=== PATIENT | female | born 1940 | race Caucasian/White ===

== ENCOUNTER 2022-01-23 06:55 | Emergency (ER) | payer MEDICARE, OTHER ==
[~2022-01-23] VITALS: Ht 160 cm; Wt 108.9 kg
[2022-01-23] MEDS ORDERED: OMEP20ER PO (07:36)
[2022-01-23] MEDS ORDERED: MELO7.5 PO (08:09)
[2022-01-23] MEDS ORDERED: TRAZ100 PO (08:09)
[2022-01-23] MEDS ORDERED: AMLO5 PO (08:10)
[2022-01-23] MEDS ORDERED: CIPR500 PO (08:10)
[2022-01-23 08:40] LABS: BASOPHILS ABSOLUTE AUTO 0.04 K/mm3 (0.00-0.23); BASOPHILS PERCENT AUTO 0 % (0-2); EOSINOPHILS ABSOLUTE AUTO 0.01 K/mm3 (0.00-0.68); EOSINOPHILS PERCENT AUTO 0 % (0-6); Hematocrit 36.6 % (33.0-51.0); Hemoglobin 12.5 g/dL (11.5-16.0); IMMATURE GRAN ABSOLUTE AUTO 0.11 K/mm3 (0.00-0.10); IMMATURE GRAN PERCENT AUTO 1 % (0-1); LYMPHOCYTES ABSOLUTE AUTO 0.69 K/mm3 (0.84-5.20); LYMPHOCYTES PERCENT AUTO 5 % (21-46); MONOCYTES ABSOLUTE AUTO 0.51 K/mm3 (0.16-1.47); MONOCYTES PERCENT AUTO 4 % (4-13); Mean Corpuscular HGB 32.7 pg (26.0-34.0); Mean Corpuscular HGB Conc 34.2 g/dL (31.5-36.5); Mean Corpuscular Volume 96 fL (80-100); Mean Platelet Volume 11.8 fL (9.1-12.4); NEUTROPHILS ABSOLUTE AUTO 11.82 K/mm3 (1.96-9.15); NEUTROPHILS PERCENT AUTO 90 % (41-73); Platelet Count 288 K/mm3 (150-400); RDW Coefficient Variation 14.1 % (11.7-14.2); RDW Standard Deviation 49.3 fL (35.1-46.3); Red Blood Cell Count 3.82 M/mm3 (3.80-5.20); White Blood Cell Count 13.18 K/mm3 (4.00-11.30)
[2022-01-23 08:47] LABS: Source, Urine Straight Cath
[2022-01-23 08:56] LABS: Blood, Urine Neg (Neg); Glucose Qualitative, Urine Neg (Neg); Ketones, Urine Neg (Neg); Leukocyte Esterase, Urine Neg (Neg); Nitrite, Urine Neg (Neg); Protein, Urine 2+ (Neg); Urobilinogen, Urine 1+ (Normal)
[2022-01-23 08:56] LABS: Albumin, Blood 3.4 g/dL (3.4-5.0); Albumin/Globulin Ratio 0.9 (0.8-1.8); Bilirubin, Total 0.5 mg/dL (0.1-1.0); Bun/Creatinine Ratio 20.1 (12.0-20.0); Calcium, Blood 10.5 mg/dL (8.5-10.1); Creatinine, Blood 1.39 mg/dL (0.40-1.00); Globulin, Blood 3.7 g/dL (2.2-4.0); Potassium, Blood 3.3 mmol/L (3.5-5.5); Total Protein, Blood 7.1 g/dL (6.4-8.2)
[2022-01-23 09:06] LABS: Bilirubin, Urine 1+ (Neg)
[2022-01-23 09:51] LABS: Appearance, Urine Clear (Clear); Color, Urine Yellow (P-Yellow); Red Blood Cells, Urine 0-2 /hpf (0-2); White Blood Cells, Urine 0-2 /hpf (0-5)
[2022-01-23 09:52] LABS: Bacteria Rare /hpf; Calcium Oxalate Crystals Few /hpf; Squamous Epithelial Cells Rare /hpf (Few)
[2022-01-23] MEDS ORDERED: METO10 PO (10:00)
== END 2022-01-23 12:43 | disposition home or self-care (01) ==
LOC: ER 06:55
PROVIDERS: Emergency Medicine
DX: R11.2 Nausea with vomiting, unspecified (principal); E86.0 Dehydration; K21.9 Gastro-esophageal reflux disease without esophagitis; Z91.09 Other allergy status, other than to drugs and biological substances
CPT/HCPCS: 36415; 80053; 81001; 83690; 84484; 85025; A9270; J2405; J2765; J3475; J7030; P9612

== ENCOUNTER 2022-01-25 23:01 | Inpatient (IN) | payer MEDICARE, OTHER ==
[~2022-01-25] VITALS: Ht 162.6 cm; Wt 102.5 kg
[~2022-01-25 23:01] MED LIST: AMLO5 PO; CIPR500 PO; MELO7.5 PO; METO10 PO; OMEP20ER PO; TRAZ100 PO
[2022-01-26 00:07] LABS: BASOPHILS ABSOLUTE AUTO 0.03 K/mm3 (0.00-0.23); BASOPHILS PERCENT AUTO 0 % (0-2); EOSINOPHILS ABSOLUTE AUTO 0.01 K/mm3 (0.00-0.68); EOSINOPHILS PERCENT AUTO 0 % (0-6); Hematocrit 30.2 % (33.0-51.0); IMMATURE GRAN PERCENT AUTO 1 % (0-1); LYMPHOCYTES ABSOLUTE AUTO 0.57 K/mm3 (0.84-5.20); LYMPHOCYTES PERCENT AUTO 4 % (21-46); MONOCYTES PERCENT AUTO 4 % (4-13); Mean Corpuscular HGB 32.9 pg (26.0-34.0); Mean Corpuscular HGB Conc 33.1 g/dL (31.5-36.5); Mean Corpuscular Volume 99 fL (80-100); Mean Platelet Volume 12.1 fL (9.1-12.4); NEUTROPHILS ABSOLUTE AUTO 14.34 K/mm3 (1.96-9.15); NEUTROPHILS PERCENT AUTO 91 % (41-73); Platelet Count 202 K/mm3 (150-400); RDW Coefficient Variation 14.5 % (11.7-14.2); RDW Standard Deviation 52.8 fL (35.1-46.3); Red Blood Cell Count 3.04 M/mm3 (3.80-5.20); White Blood Cell Count 15.75 K/mm3 (4.00-11.30)
[2022-01-26 00:26] LABS: Albumin, Blood 2.4 g/dL (3.4-5.0); Albumin/Globulin Ratio 0.8 (0.8-1.8); Bilirubin, Total 0.4 mg/dL (0.1-1.0); Bun/Creatinine Ratio 39.2 (12.0-20.0); Calcium, Blood 7.4 mg/dL (8.5-10.1); Creatinine, Blood 0.87 mg/dL (0.40-1.00); Globulin, Blood 2.9 g/dL (2.2-4.0); Potassium, Blood 3.3 mmol/L (3.5-5.5); Total Protein, Blood 5.3 g/dL (6.4-8.2)
[2022-01-26 02:50] LABS: Influenza A, PCR NEGATIVE (NEGATIVE); Influenza B, PCR NEGATIVE (NEGATIVE); Resp Syncytial Virus, PCR NEGATIVE (NEGATIVE); SARS-Cov-2 (COVID-19) PCR, MMC NEGATIVE (NEGATIVE)
[2022-01-26 11:33] LABS: Bun/Creatinine Ratio 42.9 (12.0-20.0); Creatinine, Blood 0.79 mg/dL (0.40-1.00)
[2022-01-26 11:40] LABS: Potassium, Blood 5.3 mmol/L (3.5-5.5)
--- NOTE | 2022-01-26 16:55 | NUR ---
Spiritual care request. Pt. is awake in bed and welcmoes my visit. While the Pt. denies spiritual care, th Pt. does verbalize that she is unsettled by not knowing more about her condition. The Pt. also concern about payment for care. This senior planning manager relayed concern to the CAMP PROGRAM DIRECTOR who will share concern with the Boom Conveyor Operator.
--- NOTE | 2022-01-26 18:23 | NUR ---
SHIFT SUMMARY; ASSUMED CARE FROM ED FOR ADMIT. SLID FROM ER GURNEY TO BED WITH SLIDER SHEET AND ASSITANCE. NG TUBE IN PLACE FROM ED, CONNECTED TO PADILLA SUCTION. EVALUATED BY DR. LOPEZ IN ED. NPO FOR BOWEL REST. VSS, A/A/OX4, 2L 02, ATTENDS FOR URGENCY IN PLACE. LR INFUSING AT 100ML/HR. WILL CONTINUE TO MONITOR AND TREAT UNTIL CHANGE OF SHIFT.
--- NOTE | 2022-01-27 04:50 | NUR ---
FREIGHT RATE CLERK SUMMARY PT A/OX4. SLOW TO RESPOND. 2L O2 NC. NG TUBE IN PLACE W/LOW INTERMITTENT SUCTION; REMOVED CANISTER W/700MLS DURING SHIFT; CONTENTS BLACK W/SEDIMENT. ASSISTED PT W/BEDPAN TO URINATE. CONT IV FLUID/LR 100MLS/HR. PT LIVES IN ASSISTED LIVING (HOME [facility] HOME); TALKED TO RUTH F/CUSTODIAL TO UPDATE. OBTAINED PERMISSION TO TALK TO RUTH. PT RESTED T/O THE NIGHT CALL LIGHT IN REACH. PT SLEPT W/SHOES ON HER FEET P/PT REQUEST. CALL LIGHT IN REACH.
[2022-01-27 05:09] LABS: BASOPHILS ABSOLUTE AUTO 0.02 K/mm3 (0.00-0.23); BASOPHILS PERCENT AUTO 0 % (0-2); EOSINOPHILS ABSOLUTE AUTO 0.03 K/mm3 (0.00-0.68); EOSINOPHILS PERCENT AUTO 0 % (0-6); Hematocrit 28.7 % (33.0-51.0); Hemoglobin 9.7 g/dL (11.5-16.0); IMMATURE GRAN ABSOLUTE AUTO 0.05 K/mm3 (0.00-0.10); IMMATURE GRAN PERCENT AUTO 1 % (0-1); LYMPHOCYTES ABSOLUTE AUTO 0.96 K/mm3 (0.84-5.20); LYMPHOCYTES PERCENT AUTO 9 % (21-46); MONOCYTES ABSOLUTE AUTO 0.39 K/mm3 (0.16-1.47); MONOCYTES PERCENT AUTO 4 % (4-13); Mean Corpuscular HGB 33.2 pg (26.0-34.0); Mean Corpuscular HGB Conc 33.8 g/dL (31.5-36.5); Mean Corpuscular Volume 98 fL (80-100); Mean Platelet Volume 12.1 fL (9.1-12.4); NEUTROPHILS ABSOLUTE AUTO 9.39 K/mm3 (1.96-9.15); NEUTROPHILS PERCENT AUTO 87 % (41-73); Platelet Count 200 K/mm3 (150-400); RDW Coefficient Variation 14.1 % (11.7-14.2); RDW Standard Deviation 51.8 fL (35.1-46.3); Red Blood Cell Count 2.92 M/mm3 (3.80-5.20); White Blood Cell Count 10.84 K/mm3 (4.00-11.30)
[2022-01-27 05:30] LABS: Magnesium, Blood 1.9 mg/dL (1.6-2.4)
[2022-01-27 05:33] LABS: Albumin, Blood 2.4 g/dL (3.4-5.0); Anion Gap 7 mmol/L (6-16); Blood Urea Nitrogen 25 mg/dL (8-24); Bun/Creatinine Ratio 37.7 (12.0-20.0); CO2, Blood 29 mmol/L (21-32); Calcium, Blood 7.8 mg/dL (8.5-10.1); Chloride, Blood 99 mmol/L (98-108); Creatinine, Blood 0.66 mg/dL (0.40-1.00); Glomerular Filtration Rate 88 (60-); Glucose, Blood 82 mg/dL (70-99); Phosphorus, Blood 1.7 mg/dL (2.5-4.9); Sodium, Blood 135 mmol/L (136-145)
[2022-01-27 05:38] LABS: Potassium, Blood 3.2 mmol/L (3.5-5.5)
--- NOTE | 2022-01-27 13:31 | NUR ---
Pt sitting on edge of bed, PT beside her; encouraging her to get up out of bed with his assistance. Pt currently has dobhoff in place hooked up to suction. She was seen by surgery this am to evaluate if the SBO is something that will resolve on it's own. She is alert, oriented. No changes to care plan needed at this time.
--- NOTE | 2022-01-27 17:49 | NUR ---
SHIFT SUMMARY PATIENT DENIES PAIN, NAUSEA, SHORTNESS OF BREATH. PATIENT IS A 2P WITH A FWW. PATIENT WORKED WITH PT TODAY. NG PATENT AND CONNECTED TO LOW, INTERMITTENT SUCTION. PATIENT IS NPO. DR. RUIZ CAME TO CONSULT, WANTED SUCTION PUT ON CONTINUOUS. OKAY TO CLAMP FOR XRAY WITH CONTRAST. PATIENT TAKEN X2 FOR XRAY. PER V/O AFTER SCAN, DO NOT CONNECT TO SUCTION TONIGHT. PATIENT TOLERATING WELL. PATIENT IS PASSING SMALL AMOUNT OF GAS. PATIENT CAREGIVER VISITED IN AFTERNOON. NEW IV PLACED IN R FOREARM. PATIENT ON 2L VIA N/C, USUALLY DOES NOT WEAR O2. TRIALED ON ROOM AIR, SATURATED AT 81%. 2L PLACED AGAIN, MAINTAINING SATS AT 98%. PATIENT VERY TIRED. PATIENT IS PLESANT AND COOPERATIVE WITH CARE.
--- NOTE | 2022-01-28 04:36 | NUR ---
MANAGER UTILITIES SUMMARY PT RESTING IN BED T/O NIGHT. CONT NS FLUIDS 125MLS P/HR. NG TUBE IN PLACE; CLAMPED; NO SUCTIONING P/DR; PT IS TOLERATING; DENIES NAUSEA/PAIN. ASSISTED PT W/BEDPAN. NPO. PT WEARING SLIP ON TENNIS SHOES; REMOVED FOR BRIEF MASSAGE AND NOTED SKIN INTACT AND ODOR; PT WANTS SHOES ON FEET AT ALL TIMES. A/OX4; SLOW TO RESPOND. CALL LIGHT IN REACH; USES APPROPRIATELY.
[2022-01-28 05:47] LABS: Albumin, Blood 2.5 g/dL (3.4-5.0); Anion Gap 7 mmol/L (6-16); Blood Urea Nitrogen 18 mg/dL (8-24); Bun/Creatinine Ratio 26.6 (12.0-20.0); CO2, Blood 30 mmol/L (21-32); Calcium, Blood 7.8 mg/dL (8.5-10.1); Chloride, Blood 103 mmol/L (98-108); Creatinine, Blood 0.68 mg/dL (0.40-1.00); Glomerular Filtration Rate 87 (60-); Glucose, Blood 79 mg/dL (70-99); Phosphorus, Blood 1.5 mg/dL (2.5-4.9); Potassium, Blood 2.8 mmol/L (3.5-5.5); Sodium, Blood 140 mmol/L (136-145)
--- NOTE | 2022-01-28 17:10 | NUR ---
SHIFT SUMMARY PATIENT DENIES PAIN, AND SHORTNESS OF BREATH. PATIENT REPORTS SLIGHT NAUSEA. CONNECTED TO LIS AFTER FINAL XRAY THIS MORNING. PATIENT REPORTS SOME RELIEF WITH THAT. BOWEL FOLLOW THROUGH COMPLETE, SEE RESULTS. PER DR. RUIZ, DC NG TUBE. IF NO BM BY TONIGHT GIVE SUPPOSITORY. IF NO RESULTS FROM THAT, START MOM BID. PATIENT NPO BUT SIPS AND CHIPS OKAY. PATIENT WORKED WIHT PT. PATIENT UP TO CHAIR THROUGHOUT SHIFT. PATIENT IS A 2P FWW. POWERGLIDE PLACED TO [place]. PATIENT IS PLEASANT AND COOPERATIVE WITH CARE.
--- NOTE | 2022-01-29 04:57 | NUR ---
SHIFT SUMMARY: PT IS ALERT AND ORIENTED. PT IS CALM AND COOPERATIVE WITH CARE. PT CALLS APPROPRIATELY. PT IS A MAX ASSIST, NOT OUT OF BED OVERNIGHT. PT REQUESTED BED PURDY FOR URINATION. FLUIDS RUNNING ORDERED. PT DENIES PAIN, NAUSEA, VOMITING, AND SOB. PT SLEPT MUCH OF THE NIGHT WHEN NOT DISTURBED. STILL NO BOWEL MOVEMENT, BOWEL CARE TO BEGIN THIS AM. BED IN LOW POSITION, CALL LIGHT WITHIN REACH. WILL REPORT TO DAY NURSE.
[2022-01-29 05:43] LABS: BASOPHILS ABSOLUTE AUTO 0.04 K/mm3 (0.00-0.23); BASOPHILS PERCENT AUTO 1 % (0-2); EOSINOPHILS ABSOLUTE AUTO 0.09 K/mm3 (0.00-0.68); EOSINOPHILS PERCENT AUTO 2 % (0-6); Hematocrit 26.2 % (33.0-51.0); Hemoglobin 8.6 g/dL (11.5-16.0); IMMATURE GRAN ABSOLUTE AUTO 0.08 K/mm3 (0.00-0.10); IMMATURE GRAN PERCENT AUTO 1 % (0-1); LYMPHOCYTES ABSOLUTE AUTO 1.15 K/mm3 (0.84-5.20); LYMPHOCYTES PERCENT AUTO 20 % (21-46); MONOCYTES ABSOLUTE AUTO 0.44 K/mm3 (0.16-1.47); MONOCYTES PERCENT AUTO 8 % (4-13); Mean Corpuscular HGB 33.2 pg (26.0-34.0); Mean Corpuscular HGB Conc 32.8 g/dL (31.5-36.5); Mean Corpuscular Volume 101 fL (80-100); Mean Platelet Volume 11.9 fL (9.1-12.4); NEUTROPHILS ABSOLUTE AUTO 3.96 K/mm3 (1.96-9.15); NEUTROPHILS PERCENT AUTO 69 % (41-73); Platelet Count 212 K/mm3 (150-400); RDW Coefficient Variation 14.3 % (11.7-14.2); RDW Standard Deviation 52.3 fL (35.1-46.3); Red Blood Cell Count 2.59 M/mm3 (3.80-5.20); White Blood Cell Count 5.76 K/mm3 (4.00-11.30)
[2022-01-29 06:11] LABS: Albumin, Blood 2.5 g/dL (3.4-5.0); Anion Gap 5 mmol/L (6-16); Blood Urea Nitrogen 12 mg/dL (8-24); Bun/Creatinine Ratio 18.8 (12.0-20.0); CO2, Blood 26 mmol/L (21-32); Calcium, Blood 7.9 mg/dL (8.5-10.1); Chloride, Blood 107 mmol/L (98-108); Creatinine, Blood 0.64 mg/dL (0.40-1.00); Glomerular Filtration Rate 89 (60-); Glucose, Blood 76 mg/dL (70-99); Magnesium, Blood 1.8 mg/dL (1.6-2.4); Phosphorus, Blood 1.9 mg/dL (2.5-4.9); Potassium, Blood 3.2 mmol/L (3.5-5.5); Sodium, Blood 138 mmol/L (136-145)
--- NOTE | 2022-01-29 18:43 | NUR ---
SHIFT SUMMARY: PT A&O, PLEASANT AND COOPERATIVE. PT WAS ABLE TO TRANSFER INTO CHAIR WITH PT. PT TRANSFERED BACK INTO BED WITH MARIAJOSE ECD WITH 1 PERSON TRANSFER. PT WAS ABLE TO HAVE ONE SMALL FIRM/SOFT BOWEL MOVEMENT. PT WAS GIVEN ANOTHER DOSE OF MOM 15ML TO HELP WITH BOWEL OBSTRUCTION. PT CONTIUNES TO GET NS 125ML/HR. PT REVECIVED TWO DOSE OF AMPICILLIN WITH NO ADVERSE REACTIONS OR SYMPTOMS. PT RESTING IN BED WITH CALL LIGHT WITHIN REACH.
--- NOTE | 2022-01-30 05:33 | NUR ---
SHIFT SUMMARY: PT IS ALERT AND ORIENTED. PT IS CALM AND COOPERATIVE WITH CARE. PT CALLS APPROPRIATELY. PT IS A 1-2 ASSIST, NOT OUT OF BED OVERNIGHT. PT HAD LARGE BM SHORTLY AFTER SHIFT CHANGE, NO BOWEL CARE MEDS GIVEN AFTER. FLUIDS RUNNING ORDERED. PT DENIES PAIN, NAUSEA, VOMITING, AND SOB. BED IN LOW POSITION, CALL LIGHT WITHIN REACH. WILL CONTINUE TO MONITOR.
[2022-01-30 06:10] LABS: Hematocrit 25.9 % (33.0-51.0); Hemoglobin 8.6 g/dL (11.5-16.0); Mean Corpuscular HGB 33.5 pg (26.0-34.0); Mean Corpuscular HGB Conc 33.2 g/dL (31.5-36.5); Mean Corpuscular Volume 101 fL (80-100); Mean Platelet Volume 11.4 fL (9.1-12.4); Platelet Count 209 K/mm3 (150-400); RDW Standard Deviation 52.1 fL (35.1-46.3); Red Blood Cell Count 2.57 M/mm3 (3.80-5.20); White Blood Cell Count 5.69 K/mm3 (4.00-11.30)
[2022-01-30 06:57] LABS: Albumin, Blood 2.5 g/dL (3.4-5.0); Anion Gap 8 mmol/L (6-16); Blood Urea Nitrogen 9 mg/dL (8-24); Bun/Creatinine Ratio 14.7 (12.0-20.0); CO2, Blood 25 mmol/L (21-32); Calcium, Blood 7.8 mg/dL (8.5-10.1); Chloride, Blood 107 mmol/L (98-108); Creatinine, Blood 0.61 mg/dL (0.40-1.00); Glomerular Filtration Rate 90 (60-); Glucose, Blood 72 mg/dL (70-99); Phosphorus, Blood 1.3 mg/dL (2.5-4.9); Potassium, Blood 3.2 mmol/L (3.5-5.5); Sodium, Blood 140 mmol/L (136-145)
--- NOTE | 2022-01-30 13:40 | NUR ---
DR. COLLINS: PT DRANK 118ML OF FLUIDS AND ATE 75% OF LUNCH. PT HAD LOOSE BOWEL MOVEMENT 700ML. DR. COLLINS ORDERED TO ADVANCE DIET TO PUREE DIET AND STOP IV FLUIDS.
--- NOTE | 2022-01-30 19:25 | NUR ---
SHIFT SUMMARY: PT A&O PLEASANT. PT TRANSFERED TO THE CHAIR FOR BEAKFAST AND LUNCH. PT AMBULATED TO THE BATHROOM FOR A SHOWER TODAY. DR. COLLINS DC'D IV FLUIDS AND ANTIBIOTICS. DR. COLLINS ORDERED FULL LIQUID AND ADVANCED TOLERATED. PT HAD MULTIPLE LOOSE BOWEL MOVEMENTS AND URINE OUTPUT. PT ADVANCED TO MECHNICAL SOFT DIET FOR DINNER. PT RESTING IN BED WITH CALL LIGHT WITHIN REACH.
--- NOTE | 2022-01-31 01:17 | NUR ---
SHIFT SUMMARY PLEASANT 81-YEAR-OLD FEMALE, A&O X4. DNR STATUS. POWER GLIDE TO LEFT UPPER ARM, PERIPHERAL IV TO R FOREARM, PATENT. 1-PERSON ASSIST WITH FWW. O2 AT 2L CONTINUOUS. MEDS WHOLE. BEDSIDE COMMODE OR BEDPAN, CONTINENT. NO STOOLS FIRST HALF THIS SHIFT, REPORTED TO BE LOOSE LAST SHIFT. DIET: MECHANICAL SOFT, THIN LIQUIDS. PTN HAS BEEN RESTING COMFORTABLY FIRST HALF THIS SHIFT. CONTINUE TO MONITOR.
[2022-01-31 05:15] LABS: Hematocrit 24.6 % (33.0-51.0); Hemoglobin 8.4 g/dL (11.5-16.0); Mean Corpuscular HGB 33.9 pg (26.0-34.0); Mean Corpuscular HGB Conc 34.1 g/dL (31.5-36.5); Mean Corpuscular Volume 99 fL (80-100); Mean Platelet Volume 11.5 fL (9.1-12.4); Platelet Count 214 K/mm3 (150-400); RDW Coefficient Variation 13.9 % (11.7-14.2); RDW Standard Deviation 50.2 fL (35.1-46.3); Red Blood Cell Count 2.48 M/mm3 (3.80-5.20); White Blood Cell Count 5.43 K/mm3 (4.00-11.30)
[2022-01-31 05:39] LABS: Albumin, Blood 2.5 g/dL (3.4-5.0); Anion Gap 6 mmol/L (6-16); Blood Urea Nitrogen 7 mg/dL (8-24); Bun/Creatinine Ratio 11.2 (12.0-20.0); CO2, Blood 25 mmol/L (21-32); Calcium, Blood 7.6 mg/dL (8.5-10.1); Chloride, Blood 105 mmol/L (98-108); Creatinine, Blood 0.62 mg/dL (0.40-1.00); Glomerular Filtration Rate 89 (60-); Glucose, Blood 82 mg/dL (70-99); Phosphorus, Blood 1.6 mg/dL (2.5-4.9); Potassium, Blood 3.3 mmol/L (3.5-5.5); Sodium, Blood 136 mmol/L (136-145)
--- NOTE | 2022-01-31 05:50 | NUR ---
0567 This manual writer assumed care of patient after 0215 this am. Patient has been resting well. Pt was awakened for powerglide lab draw, line draws well. Patient ws up to BSC with assist. No c/o nausia or pain. Will continue cares and monitoring. Call light in reach.
--- NOTE | 2022-01-31 19:35 | NUR ---
SHIFT SUMMARY: PT A/O X 4 ONE ASSIST WITH WALKER TO BSC. PLEASANT AND COOPERATIVE WITH CARE. PT CONTINUES TO HAVE BM'S. TODAY HAD LIQUID BM WHICH HAD GRAINY MATERIAL THAT WAS DARK BLACK/BROWN COLOR. SENT SAMPLE PER MD ORDER. PT DENIES ANY ABD PAIN/N/V AT THIS TIME.
--- NOTE | 2022-02-01 04:57 | NUR ---
SHIFT SUMMARY PT IS AOX4, 1 ASSIST TO BSC, DNR STATUS. RCVD REPORT OF DARK TARRY STOOLS AND DECLINING HGB FORM DAYSHIFT NURSE. PT DID NOT HAVE ANY BM THIS SHIFT, STOOL OCCULT BLOOD LAB IS STILL PENDING. PT C/O BACK OF THE LEG PAIN WHICH WAS RELIEVED BY REPOSITIONING AND PUTTING HER LEGS ON PILLOWS. PT RESTING COMFORTABLY AND SLEEPING T/O MOST OF THE SHIFT. DENIES ANY N/V OR TENDERNESS IN ABDOMINAL AREA.
[2022-02-01 05:27] LABS: Hemoglobin 8.6 g/dL (11.5-16.0); Mean Corpuscular HGB Conc 33.1 g/dL (31.5-36.5); Mean Corpuscular Volume 100 fL (80-100); Mean Platelet Volume 11.6 fL (9.1-12.4); Platelet Count 245 K/mm3 (150-400); RDW Coefficient Variation 13.7 % (11.7-14.2); RDW Standard Deviation 49.5 fL (35.1-46.3); Red Blood Cell Count 2.61 M/mm3 (3.80-5.20); White Blood Cell Count 4.89 K/mm3 (4.00-11.30)
[2022-02-01 05:43] LABS: Albumin, Blood 2.5 g/dL (3.4-5.0); Anion Gap 5 mmol/L (6-16); Blood Urea Nitrogen 6 mg/dL (8-24); Bun/Creatinine Ratio 9.7 (12.0-20.0); CO2, Blood 25 mmol/L (21-32); Calcium, Blood 7.9 mg/dL (8.5-10.1); Chloride, Blood 105 mmol/L (98-108); Creatinine, Blood 0.62 mg/dL (0.40-1.00); Glomerular Filtration Rate 89 (60-); Glucose, Blood 83 mg/dL (70-99); Phosphorus, Blood 1.5 mg/dL (2.5-4.9); Potassium, Blood 3.7 mmol/L (3.5-5.5); Sodium, Blood 135 mmol/L (136-145)
[2022-02-01 07:46] LABS: Stool Occult Blood Guaiac 1 Pos (Neg)
--- NOTE | 2022-02-01 15:06 | NUR ---
Pt is pleasant, cooperative with care. She is alert and oriented x's 4. She denies pain this morning. Plan in place for pt to return to Home [place]. No further Palliative Care needed at this time.
[2022-02-08] MEDS ORDERED: LEVSOD25 PO (13:31)
== END 2022-02-01 16:01 | disposition home health service (06) | DRG 871 ==
LOC: ER 23:01 → MEDS 23:02 → ERHOLD 23:02 → MEDS 01-26 12:04
PROVIDERS: Emergency Medicine; Internal Medicine; Student in an Organized Health Care Education/Training Program; ADMIT Internal Medicine
DX: A41.9 Sepsis, unspecified organism (principal); J18.9 Pneumonia, unspecified organism; J69.0 Pneumonitis due to inhalation of food and vomit; K56.601 Complete intestinal obstruction, unspecified as to cause; K56.7 Ileus, unspecified; Z68.41 Body mass index [BMI] 40.0-44.9, adult; Z66 Do not resuscitate; Z20.822 Contact with and (suspected) exposure to COVID-19; E87.6 Hypokalemia; E83.39 Other disorders of phosphorus metabolism; I10 Essential (primary) hypertension; K21.9 Gastro-esophageal reflux disease without esophagitis; E66.9 Obesity, unspecified; Z91.011 Allergy to milk products; Z79.899 Other long term (current) drug therapy
CPT/HCPCS: 0241U; 36415; 71045; 74177; 74250; 80048; 80053; 80069; 82270; 83605; 83690; 83735; 84145; 84484; 85025; 85027; 87040; 93005; 93010; 94760; 94761; 96365; 96366; 96372; 96375; 97110; 97116; 97161; 97530; 99285-25; A9270; J0295; J0456; J0696; J1650; J2405; J3010; J3480; J7030; J7050; J7060; J7120; Q9967

== ENCOUNTER 2022-02-03 14:55 | Emergency (ER) | payer MEDICARE ==
[~2022-02-03] VITALS: Ht 170.2 cm; Wt 90.7 kg
[2022-02-03] MEDS ORDERED: ACET500 PO (15:15)
[2022-02-03 15:57] LABS: Source, Urine Clean Catch
[2022-02-03 16:18] LABS: Appearance, Urine Clear (Clear); Bilirubin, Urine Neg (Neg); Blood, Urine 5+ (Neg); Color, Urine Yellow (P-Yellow); Glucose Qualitative, Urine Neg (Neg); Ketones, Urine 1+ (Neg); Leukocyte Esterase, Urine Neg (Neg); Nitrite, Urine Neg (Neg); Protein, Urine 1+ (Neg); Urobilinogen, Urine NORM (Normal)
[2022-02-03 16:47] LABS: Bacteria Few /hpf; Red Blood Cells, Urine 25-50 /hpf (0-2); Squamous Epithelial Cells Many /hpf (Few); White Blood Cells, Urine 0-2 /hpf (0-5)
[2022-02-03 16:48] LABS: Hyaline Casts 0-2 /lpf (0-2); Transitional Epithelial Cells Rare /hpf (0-Rare)
[2022-02-03 18:02] LABS: Influenza A, PCR NEGATIVE (NEGATIVE); Influenza B, PCR NEGATIVE (NEGATIVE); Resp Syncytial Virus, PCR NEGATIVE (NEGATIVE); SARS-Cov-2 (COVID-19) PCR, MMC NEGATIVE (NEGATIVE)
[2022-02-05 10:08] LABS: Influenza A, PCR NEGATIVE (NEGATIVE); Influenza B, PCR NEGATIVE (NEGATIVE); Resp Syncytial Virus, PCR NEGATIVE (NEGATIVE); SARS-Cov-2 (COVID-19) PCR, MMC NEGATIVE (NEGATIVE)
== END 2022-02-05 13:35 ==
LOC: ER 14:55
PROVIDERS: Physician Assistant; Student in an Organized Health Care Education/Training Program
DX: R53.1 Weakness (principal); K21.9 Gastro-esophageal reflux disease without esophagitis; Z88.0 Allergy status to penicillin; Z88.8 Allergy status to other drugs, medicaments and biological substances; Z79.899 Other long term (current) drug therapy
CPT/HCPCS: 0241U; 51701; 81001; 97162; 97530; A9270